=== PATIENT | female | born 1960 | race Caucasian/White ===

== ENCOUNTER → 2016-10-19 | Outpatient (CLI) | payer BC | LOC: FIMAGING 15:53 | PROVIDERS: ATTEND Internal Medicine | DX: Z12.31 Encounter for screening mammogram for malignant neoplasm of breast (principal) | CPT/HCPCS: G0202 ==

== ENCOUNTER → 2016-11-03 | Outpatient (CLI) | payer BC | LOC: FIMAGING 11:28 | PROVIDERS: ATTEND Internal Medicine | DX: Z12.39 Encounter for other screening for malignant neoplasm of breast (principal); R92.0 Mammographic microcalcification found on diagnostic imaging of breast | CPT/HCPCS: G0206 ==

== ENCOUNTER → 2016-12-06 | Day surgery (SDC) | payer BC ==
[~2016-12-06] MED LIST: BUPIVACAINE 0.5% 10 ML SDV ONE; LIDO/EPI 1% **Not for Epidural 20 ML MDV ONE; LIDOCAINE 1% 300 MG/30 ML SDV ONE; THROMBIN (BOVINE) 5,000 UNIT VIAL TP ONE
== END | disposition home or self-care (01) ==
LOC: FIMAGING 07:01
PROVIDERS: ATTEND Internal Medicine
PROC: 0HBU3ZX Excision of Left Breast, Percutaneous Approach, Diagnostic (ICD-10-PCS; principal; 2016-12-06)
DX: D05.12 Intraductal carcinoma in situ of left breast (principal); N60.92 Unspecified benign mammary dysplasia of left breast
CPT/HCPCS: G0206

== ENCOUNTER 2017-03-11 09:13 | Observation (INO) | payer BC ==
--- NOTE | 2017-03-10 08:51 | PDGENHP ---
History and Physical - Chief Complaint Left Leg Pain - History of Present Illness 1. ~~Chronic LEFT Hamstring tear 2. ~~Bilateral~Femoroacetabular impingement (ELIZABETH) Cam type, with~resultant labral tear 3. ~~Right~Borderline Hip Dyplasia HISTORY OF PRESENT ILLNESS: Elizabtehis a 56 y.o.~very ~active female~who I have had the pleasure to consult on today.~I have enjoyed meeting her. She~lives in [place]. 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 ~She~is ; she~has no~children. ~Elizabethenjoys running and cycling (competitive: marathons, dualathons). ~ Duyen's left~hip pain started in the late , with no~recalled trauma or injury , and with no~previous complaints.~Elizabethdoes not have~a known history of hip dysplasia. Presentation today is of~posterior left pelvis. ~The hip does not~wake her~at night. ~Sitting can be a real struggle~for her. Elizabethdoes~report suffering from lower back pain episodes. L5-S1 herniated disc. Elizabethhas~participated in physical therapy on and off for 10 years~and has~tried other conservative measures including dry needling, chiropractic treatments, massage therapy and yoga, core strengthening. She~has not~received sufficient symptomatic improvement. Elizabethhas~utilized medication for pain management, including NSAID. Elizabethhas used medication since her pain began. Elizabethdenies issues with the right~hip. ~ Elizabethunderstands that she~has a hip and pelvis problem which should be researched and wishes to get a better understanding of her~hip status, followed by an establishment of a treatment strategy, hoping she~would be able to get back to her~well being active life. History: Past medical history: ~ Patient ~has a past medical history of Breast cancer (HC code) and Depression. Relevant familial history: None which is relevant Past surgical history: No. Surgery Anesthesia 1 Rhinoplasty general Elizabethdenies problematic issues with general anesthesia in the past. I have reviewed, verified and agree with the past medical, surgical, family and social history. Current Medications:~currently has no medications in their medication list. ALLERGIES:~has No Known Allergies. Objective: Physical Examination: Elizabethis 5~feet 8~inches tall and weighs~160~Lbs. Duyen~is AAO x3; she~is well- nourished, in NAD. Skin is warm and dry. ~Breathing is non-labored. ~CV with RRR by pulse. Abdomen is soft, NTND. Currently, she~walks with a abnormal antalgic gait~gait. Trendelenburg sign is negative~and proprioception~is reduced, both~sides, left worse than right. She~presents~with no~signs of joint laxity.~Beightons Score: 0 Lower spine examination is negative~for sciatic or femoral nerve irritation with negative~SLR &~femoral stretch tests. Range of motion of the spine is normal~for flexion, extension, and rotations, with no~associated pain. Strength, Sensation and pulses are normal - bilaterally Ankles and knees exams are normal~and no~mal-alignment is evident. She~has~left~.5~cm short leg length discrepancy. Thigh circumference is asymmetric~with low~muscle atrophy~on left~side. Hip ROM (degrees): FL ER At 90~hip FL IR At 90~hip FL AB AD EX IR Neutral hip ER Neutral hip R 120 45 25 40 10 5 30 30 L 120 50 15 40 10 5 40 45 Specific hip and pelvis tests: Quadrant DOMINICK Roll R ++ ++ Negative L ++ Negative Negative Glut. Med ITB Pos. Imp R ++ 4+/5 strength Negative 4+/5 strength Negative L Negative 5/5 strength Negative 5/5 strength Negative ~ Ilio Psos specific tests are negative for pain during cycling for both hips~and not~remarkable for snap. HF has good strength, no pain both hips. Greater trochanteric burse is pain free~on both hips. Piriformis tests: FAIR is negative, with no~local signs of neuritis related to sciatic nerve. Hamstrings tests are positive~functional contraction and positive~tendinopathy the left hip. Over the shoulder is weaker on the left with pain over ischial tuberosity~ Imaging: Radiology studies which I~have personally reviewed, analyzed and measured are below: XR: AP of the hip and pelvis: Performed in a good~technique Coccyx to pubic symphysis distance 1.2~cm. 0~degrees [place]~Lines are preserved. Minimal~Pathological signs are seen in the Symphysis Pubis. Minimal~Pathological signs are seen at the Ischial~tuberosity. ~ Specific measurements show: NSA~ LCE Sourcil~Angle Sharp's angle Lat. Cam Lat. Pincer C.Over~sign Head~Coverage % ATDmm R N 26 12 39 + - - 77 N L N 33 7 42 + - - N N Pos. wall sign ISS NAD ~~Dysplasia Comments R Negative Negative 18.5~mm + L Negative Negative 19.5~mm Negative Sclerosis Sup. Lat. OA Cysts Joint Space-WBZ Joint Space-Medial R + + Negative 4.0~mm 3.3~mm L + + Negative 3.3~mm 4.0~mm X Table lateral: Anterior cam lesion is seen~on both hips. Alpha Angle: ~ Right 75~dergrees Left 56~degrees Xray shows bony avulsion of LEFT ischial tuberosity, with osteophyte Right femoral head MRI shows: 1 cm retraction of Left Hamstring Impression and plan:~ Elizabethis a 56 y.o.~active female~suffering from symptomatic left pelvic pain~due to Chronic Left Hamstring tear~causing significant disability to her~and altering~her~sport and life activities. Physical examination, imaging, and her~story correspond with the diagnosis mentioned above. I have explained the diagnosis and its significance to Elizabethand we have discussed the various possible treatment options and their implications with her. These include proceeding with conservative treatment while continuing to modify her~activities to avoid aggravating the hamstrings further and resuming pain medications or PRP injections (when needed) which can give temporary relief or surgical repair. We discussed in length the various aspects of the procedure including possible complications, and with regards to the fact the sciatic nerve may be scarred up to the tendons and will require delicate neurolysis. Duyen~will review the info presented. Elizabethwill contact us if she~wishes to pursue further treatment in the future. Duyen~is happy with this plan. I have also supplied her~with handouts, outlining the expected surgical treatment and rehab involved. I wish~Elizabethall the best, ~~ Shawn Licona, SUE History Information - Allergies/Home Medication List Allergies/Adverse Reactions: No Known Allergies Allergy (Verified 02/03/17 16:14) Home Medications: Lexapro 02/03/17 [Last Taken Unknown] I have personally reviewed and updated: medical history - Social History Smoking Status: Never smoked Review of Systems Review of Systems: Physical Exam Physical Exam:
[2017-03-11] MEDS ORDERED: ceFAZolin 2 GM/SWFI 2 GM/20 ML SYR IVP ONE (09:29)
[2017-03-11] MEDS ORDERED: ACETAMINOPHEN 500 MG TAB PO ONE (09:29)
[2017-03-11] MEDS ORDERED: PREGABALIN 150 MG CAP PO ONE (09:29)
[2017-03-11] MEDS ORDERED: LR 1,000 ML IV ONE (09:29)
[2017-03-11] MEDS ORDERED: BUPIVACAINE 0.25% 30 ML SDV ONE (09:54)
[2017-03-11] MEDS ORDERED: MIDAZOLAM 2 MG/2 ML VIAL IVP ONE (09:56)
[2017-03-11] MEDS ORDERED: SCOPOLAMINE HYDROBROMIDE 1 MG/3 DAYS PATCH TD ONE (09:56)
--- NOTE | 2017-03-11 09:59 | PDANEPAE ---
ANE History of Present Illness left hamstring tear ANE Past Medical History - Cardiovascular History Hx Hypertension: No Hx Arrhythmias: No Hx Chest Pain: No Hx Coronary Artery / Peripheral Vascular Disease: No Hx CHF / Valvular Disease: No Hx Palpitations: No - Pulmonary History Hx COPD: No Hx Asthma/Reactive Airway Disease: No Hx Recent Upper Respiratory Infection: No Hx Oxygen in Use at Home: No Hx Sleep Apnea: No Sleep Apnea Screening Result - Last Documented: Negative - Neurologic History Hx Cerebrovascular Accident: No Hx Seizures: No Hx Dementia: No - Endocrine History Hx Diabetes: No - Renal History Hx Renal Disorders: No - Liver History Hx Hepatic Disorders: No - Neurological & Psychiatric Hx Hx Neurological and Psychiatric Disorders: Yes Neurological / Psychiatric History Comment: DEPRESSION - Cancer History Hx Cancer: Yes Cancer History Comment: BREAST CANCER - Congenital Disorder History Hx Congenital Disorders: No - GI History Hx Gastrointestinal Disorders: No - Other Health History Other Health History: NONE - Chronic Pain History Chronic Pain: Yes (LOW BACK PAIN, L5 S1 BULGIING DISC) - Surgical History Prior Surgeries: colonoscopy ANE Review of Systems Review of Systems: - Exercise capacity METS (RN): 5 METS ANE Patient History - Allergies Allergies/Adverse Reactions: No Known Allergies Allergy (Verified 02/03/17 16:14) - Home Medications Home Medications: Lexapro 02/03/17 [Last Taken 03/11/17] - NPO status NPO Since - Liquids (Date): 03/10/17 NPO Since - Liquids (Time): 06:00 NPO Since - Solids (Date): 03/10/17 NPO Since - Solids (Time): 18:00 - Smoking Hx Smoking Status: Never smoked - Family Anes Hx Family Hx Anesthesia Complications: none ANE Labs/Vital Signs - Vital Signs Blood Pressure: 124/83 Heart Rate: 55 Respiratory Rate: 18 O2 Sat (%): 92 Height: 172.72 cm Weight: 74.843 kg ANE Physical Exam - Airway Neck exam: FROM Mallampati Score: Class 1 Mouth exam: normal dental/mouth exam - Pulmonary Pulmonary: no respiratory distress - Cardiovascular Cardiovascular: regular rate and rhythym - ASA Status ASA Status: I ANE Anesthesia Plan Anesthesia Plan: general endotracheal anesthesia
[2017-03-11] MEDS ORDERED: ONDANSETRON 4 MG/2 ML VIAL ONE (10:01)
[2017-03-11] MEDS ORDERED: ROCURONIUM 50 MG/5 ML VIAL ONE (10:01)
[2017-03-11] MEDS ORDERED: PROPOFOL 200 MG/20 ML VIAL ONE (10:02)
[2017-03-11] MEDS ORDERED: HYDROmorphONE/DILAUDID 2 MG/ML INJ ONE (10:02)
[2017-03-11] MEDS ORDERED: fentaNYL 100 MCG/2 ML INJ ONE ×3 (10:02→14:25)
[2017-03-11] MEDS ORDERED: PROMETHAZINE HCL 25 MG/ML INJ IVP PRN (13:03)
[2017-03-11] MEDS ORDERED: NALOXONE HCL 0.4 MG/ML INJ IVP PRN (13:03)
[2017-03-11] MEDS ORDERED: OXYCODONE/APAP 5/325 TAB PO PRN (13:03)
[2017-03-11] MEDS ORDERED: ONDANSETRON 4 MG/2 ML VIAL IVP PRN ×2 (13:03→16:33)
--- NOTE | 2017-03-11 14:07 | POSTANESTH ---
Post Anesthetic Evaluation Cardiovascular Status: Normal, Stable Respiratory Status: Normal, Stable Level of Consciousness/Mental Status: Can Participate in Eval Pain Control: Adequate, Prn Tx Ordered Nausea/Vomiting Control: Adequate, Prn Tx Ordered Complications Possibly Related to Anesthesia: None Noted
[2017-03-11] MEDS ORDERED: HYDROmorphONE/DILAUDID 1 MG/ML INJ ONE (14:08)
[2017-03-11] MEDS: HYDROmorphONE/DILAUDID 1 MG/ML INJ IVP PRN ×3 (14:09→15:13)
[2017-03-11] MEDS: fentaNYL 100 MCG/2 ML INJ IVP PRN ×3 (14:11→14:26)
[2017-03-11] MEDS ORDERED: DIAZEPAM 10 MG/2 ML SYR ONE (14:34)
[2017-03-11] MEDS ORDERED: OXYCODONE/APAP 5/325 TAB ONE (14:39)
[2017-03-11] MEDS ORDERED: DIAZEPAM 10 MG/2 ML SYR IVP ONE ×2 (14:45→16:30)
[2017-03-11] MEDS ORDERED: ONDANSETRON DISINTEGRATING 4 MG TAB PO PRN (16:33)
[2017-03-11] MEDS ORDERED: LACTULOSE 20 GM/30 ML UDCUP PO PRN (16:33)
[2017-03-11] MEDS ORDERED: POLYETHYLENE GLYCOL 3350 17 GM PKT PO PRN (16:33)
[2017-03-11] MEDS ORDERED: BISACODYL 10 MG SUPP PR PRN (16:33)
[2017-03-11] MEDS ORDERED: MAGNESIUM HYDROXIDE 30 ML UDCUP PO PRN (16:33)
[2017-03-11] MEDS: HYDROmorphone HCL/NS/PF 0.4 MG/2 ML SYR IVP PRN ×2 (17:34→19:48)
[2017-03-11] MEDS: oxyCODONE IR 5 MG TAB PO SCH ×2 (17:55→21:39)
[2017-03-11] MEDS: ACETAMINOPHEN 325 MG TAB PO PRN (21:38)
[2017-03-11] MEDS: SENNOSIDES/DOCUSATE SODIUM TAB PO SCH (21:39)
[2017-03-12] MEDS: oxyCODONE IR 5 MG TAB PO SCH ×7 (01:51→21:02)
[2017-03-12] MEDS: SENNOSIDES/DOCUSATE SODIUM TAB PO SCH ×2 (08:37→21:01)
[2017-03-12] MEDS: DIAZEPAM 2 MG TAB PO PRN ×3 (08:38→21:03)
[2017-03-12] MEDS: HYDROmorphone HCL/NS/PF 0.4 MG/2 ML SYR IVP PRN ×2 (12:23→20:56)
--- NOTE | 2017-03-12 15:35 | SUROPNOTE ---
LOBO Operative Report - Surgery Surgery was performed at [facility] at 03/11/17 OPERATIVE NOTE Patient: Duyen Mcclure~ Diagnosis:~Left~Hamstrings tendinopathy and complete~tearwith 1 cm~retraction and loose bony fragment Operation: Hamstrings tendon origin~debridement and~reattachment Surgeon:Donald Tobin MD ~ Boat Engine Mechanic: Faraz DUTTA Anaesthetic: General Indication for the Procedure: Failure of long course of conservative therapies Surgery: Position - prone. 5~cm incision over the buttock crease. Glut max muscle was retracted upwards and laterally to expose posterior hamstrings fascia. Posterior cutaneous nerve of thigh and Sciatic nerve were identified and were gently retracted laterally, away from surgical field. Ischial bone, where tendons where avulsed from, was exposed and cleaned from degenerative~hamstrings origin~tissue. The vertical-lateral aspect of the ischium was then decorticated with a rasp and periosteal elevator. Hamstrings tendons were exposed under their fascia, and were found to be tendinopathic and partially torn~as shown on MRI. Degenerative tendon tissue was debrided. Bone fragment was pulled out. Reinsertion of tendons: 3~all suture anchors were drilled and tapped~into the bone. All were double loaded with fiberwire. The Hamstrings were reattached to their bony origin using these anchors, achieving anatomical reinsertion. The superficial part of the tendon, and small remaining of tendinous tissue, were tied back ~with a vycril, so optimal approximation and position was achieved. The lower limb was moved through knee flexion and extension to test hamstrings tension. Incision was closed according to anatomical layers. After surgery,~~moved both lower limbs and had no NV compromise. Post op instructions: 1. Non~weight bearing crutches for 4~weeks followed by partial weight bearing for additional 2~weeks. 2. Pain killers as prescribed 3. Follow up visit with me in 10-14 days 4.~No sitting in an upright position (0-30 degrees of back flexion at the most) 5. No hip flexion past 20 degrees with a straight knee. 6. Duyen~will be in a locked knee brace (at 30~degrees) for 3~weeks~ 7. Full weight bearing with scooter. Regards, Dr. Black Tobin .
[2017-03-12] MEDS: ACETAMINOPHEN 325 MG TAB PO PRN (21:02)
[2017-03-12 23:46] VITALS: O2SAT 97
[2017-03-13] MEDS: oxyCODONE IR 5 MG TAB PO SCH ×4 (01:26→14:16)
[2017-03-13] MEDS: DIAZEPAM 2 MG TAB PO PRN ×2 (05:28→12:09)
[2017-03-13 07:48] VITALS: BP 113/68; PULSE 72; RESP 16; TEMP 98.6
[2017-03-13] MEDS ORDERED: ESCITALOPRAM OXALATE 10 MG TAB PO SCH (09:00)
[2017-03-13] MEDS: SENNOSIDES/DOCUSATE SODIUM TAB PO SCH (09:10)
[2017-03-13] MEDS: ACETAMINOPHEN 325 MG TAB PO PRN (09:41)
--- NOTE | 2017-03-13 10:28 | ASMTCMCOM ---
CM Note CM Note Notes: Chart reviewed. PT and OT reccomend [facility]. Met with patient to review discharge poc. She is agreeable to home health care and chooses [facility] for her needs. RN, PT and OT would be appropriate. Will send refferal to [facility]. Date Signed: 03/13/2017 10:28 AM Electronically Signed By:Lina Chatterjee RN
--- NOTE | 2017-03-13 13:58 | ASDISCHSUM ---
Discharge Information Plan Status:Home with No Needs Medically Cleared to Leave:03/12/2017 Discharge Date:03/12/2017 CM D/C Disposition: ADT D/C Disposition:Home, Routine, Self-Care Projected Discharge Date:03/13/2017 11:00 AM Transportation at D/C:Family Discharge Delay Reason: Follow-Up Date:03/13/2017 11:00 AM Discharge Slot: Final Diagnosis: Placement Information Referral Type:*Home Health Care Services Referral ID:[id number] Provider Name: Address 1: Phone Number: Address 2: Fax Number: City: Selection Factors: State: Patient Contact Information Contact Name:ANNIA Relationship: Address:[address] City:[place] Alternate Phone: [facility]/Zip Code:[place] [address] Email: Financial Information Financial Class:HMO and PPO Plans Primary Plan Desc: OUT OF STATE PPO Primary Plan Number:[id number] Secondary Plan Desc: Secondary Plan Number: Assessment Information [facility] CM Progress Note CM Note CM Note Notes: Chart reviewed. PT and OT reccomend [facility]. Met with patient to review discharge poc. She is agreeable to home health care and chooses [facility] for her needs. RN, PT and OT would be appropriate. Will send refferal to [facility]. Date Signed: 03/13/2017 10:28 AM Electronically Signed By:Lina Chatterjee RN Intervention Information
--- NOTE | 2017-03-13 14:02 | ASMTCMCOM ---
CM Note CM Note Notes: Chart reviewed. Pt recommended to have home PT/OT. Atttempted to arrange HHC but no interagency form in computer and patient has [place]. Charge nurse spoke with MD and no HHC services indicated at present. PT will dc to home with support of her . CM available if needs arise. Date Signed: 03/13/2017 02:02 PM Electronically Signed By:Lina Chatterjee RN
[2017-03-14] MEDS ORDERED: CHOLECALCIFEROL VIT D3 1,000 UNITS TAB PO SCH (09:00)
[2017-03-14] MEDS ORDERED: MULTIVITAMINS 1 EACH TAB PO SCH (09:00)
[2017-03-14] MEDS ORDERED: DICLOFENAC SODIUM 75 MG TAB PO SCH (09:00)
[2017-03-14] MEDS ORDERED: ESCITALOPRAM OXALATE 30 MG PO SCH (09:00)
[2017-03-14] MEDS ORDERED: ESCITALOPRAM OXALATE 10 MG TAB PO SCH (09:00)
== END 2017-03-13 14:36 | disposition home or self-care (01) ==
LOC: FSGY 09:13 → F3N 16:38
PROVIDERS: ADMIT Orthopaedic Surgery Sports Medicine; ATTEND Orthopaedic Surgery Sports Medicine
PROC: 0LMM0ZZ Reattachment of Left Upper Leg Tendon, Open Approach (ICD-10-PCS; principal; 2017-03-11 10:30)
PROC: 0LBM0ZZ Excision of Left Upper Leg Tendon, Open Approach (ICD-10-PCS; principal; 2017-03-11 10:30)
DX: M24.852 Other specific joint derangements of left hip, not elsewhere classified (principal); M76.02 Gluteal tendinitis, left hip
CPT/HCPCS: 27385; 97116; 97161; 97165; 97530; 97535; G0378; C1713; J0171; J0690; J1170; J2250; J2405; J2704; J3010

== ENCOUNTER → 2018-07-04 | Outpatient (CLI) | payer BC | LOC: BMCIMAGING 10:43 | PROVIDERS: ATTEND Internal Medicine Rheumatology | DX: M79.641 Pain in right hand (principal) ==

== ENCOUNTER → 2018-10-12 | Outpatient (CLI) | payer BC | LOC: FIMAGING 07:50 ==